=== PATIENT | male | born 1950 | race Two or more races ===

== ENCOUNTER 2018-02-18 12:48 | Inpatient (IN) | payer MEDICAID ==
--- NOTE | 2018-02-18 13:28 | ED Physician Chart ---
ED Chief Complaint/HPI - Patient Information Date Seen:: 02/18/18 Time Seen:: 13:10 Chief Complaint:: Seizures History of Present Illness:: onset x one day of multiple seizures; no report of trauma, LOC, H/As, neck pain , C/P, SOB, Abd. Pain, A/N/V/D/C, fever, chills, or urinary s/s Allergies:: Allergies Allergy/AdvReac Type Severity Reaction Status Date / Time No Known Allergies Allergy Verified 02/18/18 13:09 Historian:: Patient, EMS Review:: Nurse's Note Reviewed, Old Chart Reviewed, EMS run form Reviewed ED Review of Systems - Review of Systems General/Constitutional: No fever, No chills, No weight loss, No weakness, No diaphoresis, No edema, No loss of appetite Skin: No skin lesions, No rash, No bruising Head: No headache, No light-headedness Eyes: No loss of vision, No pain, No diplopia ENT: No earache, No nasal drainage, No sore throat, No tinnitus Neck: No neck pain, No swelling, No thyromegaly, No stiffness, No mass noted Cardio Vascular: No chest pain, No palpitations, No PND, No orthopnea, No edema Pulmonary: No SOB, No cough, No sputum, No wheezing GI: No nausea, No vomiting, No diarrhea, No pain, No melena, No hematochezia, No constipation, No hematemesis G/U: No dysuria, No frequency, No hematuria, No nacturia Musculoskeletal: No bone or joint pain, No back pain, No muscle pain Endocrine: No polyuria, No polydipsia Psychiatric: Prior psych history, No depression, No anxiety, No suicidal ideation, No homicidal ideation, Auditory hallucination, No visual hallucination Hematopoietic: No bruising, No lymphadenopathy Allergic/Immuno: No urticaria, No angioedema Neurological: No syncope, No focal symptoms, No weakness, No paresthesia, No headache, Seizure, No dizziness, Confusion, No vertigo ED Past Medical History - Past Medical History Obtainable: Yes Past Medical History: HTN, CAD, Dyslipidemia, PUD/GERD, Seizures, Dementia Family History: Diabetes Melitus, HTN Social History: Non Smoker, No Alcohol, No Drug Use, Single, Care Facility Surgical History: None Psychiatricy History: Schizophrenia, Bipolar Medication: Reviewed Family Medical History - Family Member Mother History Unknown: Yes ED Physical Exam - Physical Examination General/Constitutional: Awake, Well-developed, well-nourished, Alert, No distress, GCS 15, Non-toxic appearing, Ambulatory Head: Atraumatic Eyes: Lids, conjuctiva normal, PERRL, EOMI Skin: Nl inspection, No rash, No skin lesions, No ecchymosis, Well hydrated, No lymphadenopathy ENMT: External ears, nose nl, TM canals nl, Nasal exam nl, Lips, teeth, gums nl , Oropharynx nl, Tonsils nl Neck: Nontender, Full ROM w/o pain, No JVD, No nuchal rigidity, No bruit, No mass, No stridor Respiratory: Nl effort/Exclusion, Clear to Auscultation, No Wheeze/Rhonchi/Rales Cardio Vascular: RRR, No murmur, gallop, rubs, NL S1 S2, Carotid/Femoral/Distal pulses equal bilaterally GI: No tenderness/rebounding/guarding, No organomegaly, No hernia, Normal BS's, Nondistended, No mass/bruits, No McBurney tenderness, Rectum exam nl : No CVA tenderness Extremities: No tenderness or effusion, Full ROM, normal strength in all extremities, No edema, Normal digits & nails Neuro/Psych: DTR's symmetric, Normal sensory exam, Normal motor strength, Judgement/insight normal, Mood normal, Normal gait, No focal deficits Other Neuro/Psych comments:: Disoriented and Confused Misc: Normal back, No paraspinal tenderness ED Labs/Radiology/EKG Results - Lab Results Comments:: as above - Radiology Results Comments:: NAD - EKG Interpretations EKG Time:: 13:26 Rate & Rhythm: 111; ST Comments:: LVH; non-specific st-t changes ED Septic Shock - . Is Septic Shock (SBP<90, OR Lactate>4 mmol\L) present?: No ED Reassessment (Disposition) - Reassessment Reassessment Condition:: Improved - Diagnosis Diagnosis:: Seizures; Epilepsy; HTN; Dementia; CAD; Tachycardia; Cardiac Arrythmias - Aftercare/Follow up Instructions Aftercare/Follow-Up Instructions:: Counseled pt regarding lab results/diagnosis & need follow up, Counseled pt & family regarding lab results/diagnosis & need follow up - Patient Disposition Discharge/Transfer:: Acute Care w/in this hosp Accepting Physician:: Dr. Painter Time Called:: 1500 Time Responded:: 15:00 Admitted to:: Telemetry Spoke to:: Dr. Painter Admitting Medical Physician:: Dr. Painter Condition at Disposition:: Stable, Improved
[2018-02-18] MEDS ORDERED: Haloperidol Lactate 5 mg/mL 1mL Vial IM STA (13:39)
[2018-02-18] MEDS ORDERED: Haloperidol Lactate 5 mg/mL 1mL Vial ONE (14:03)
[2018-02-18 20:14] LABS: % BASOPHILS 0.1 % (0.0-2.0); % EOSINOPHILS 0.1 % (0.0-5.0); % LYMPHOCYTES 21.9 % (20.0-50.0); % MONOCYTES 8.9 % (2.0-10.0); HEMATOCRIT 42.8 % (41.0-60); HEMOGLOBIN 14.5 gm/dL (12-16); LYMPHOCYTE ABSOLUTE 2.2 Th/cmm (1.5-3.0); MEAN CELL VOLUME 90.2 fl (80-99); MEAN CORPUSCULAR HEMOGLOBIN 30.5 pg (27.0-31.0); MEAN CORPUSCULAR HGB CONC 33.8 pg (28.0-36.0); MEAN PLATELET VOLUME 7.3 fl; MONOCYTE ABSOLUTE 0.9 Th/cmm (0.3-1.0); PLATELET COUNT 251 Th/cmm (150-400); RED BLOOD COUNT 4.74 Mil/cmm (3.80-5.80); RED CELL DISTRIBUTION WIDTH 12.6 % (11.5-20.0); WHITE BLOOD COUNT 10.1 Th/cmm (4.8-10.8)
[2018-02-18 20:26] LABS: INR 1.02 (0.5-1.4)
[2018-02-18 20:33] LABS: PROTHROMBIN TIME (TEST) 10.6 SECONDS (9.5-11.5)
[2018-02-18 20:34] LABS: ALB/GLOB RATIO 1.2 (1.0-1.8); ALBUMIN 4.2 gm/dL (4.2-5.5); ALKALINE PHOSPHATASE 121 U/L (34-104); ANION GAP 11.5 (7.0-16.0); BILIRUBIN,TOTAL 0.5 mg/dL (0.3-1.0); BUN - UREA NITROGEN 11 mg/dL (7-25); CARBON DIOXIDE 25.2 mEq/L (21.0-31.0); CHLORIDE 103 mEq/L (98-107); CHOLESTEROL 150 mg/dL (<200); CREATININE - SERUM 0.6 mg/dL (0.7-1.3); CREATININE KINASE 433 U/L (30-223); GFR AFRICAN-AMERICAN > 60.0 ml/min (>90); GFR NON AFRICAN-AMERICAN > 60.0 ml/min; GLUCOSE 102 mg/dL (70-105); HDL -HIGH DENSITY LIPOPROTEIN 41 mg/dL (23-92); POTASSIUM SERUM 3.7 mEq/L (3.5-5.1); SGOT 30 U/L (13-39); SGPT/ALT 22 U/L (7-52); SODIUM SERUM 136 mEq/L (136-145); TOTAL PROTEIN,SERUM 7.8 gm/dL (6.0-8.3); TRIGLYCERIDES 58 mg/dL (<150)
[2018-02-18 22:27] VITALS: BP 119/70
[2018-02-19] MEDS ORDERED: Maalox 30 mL Cup PO PRN (01:39)
[2018-02-19] MEDS ORDERED: Magnesium Hydroxide (MOM) 30 mL UDC PO PRN (01:39)
[2018-02-19 07:02] LABS: % BASOPHILS 0.3 % (0.0-2.0); % EOSINOPHILS 0.8 % (0.0-5.0); % LYMPHOCYTES 24.9 % (20.0-50.0); % MONOCYTES 10.3 % (2.0-10.0); % NEUTROPHILS 63.7 % (40.0-80.0); EOSINOPHILE ABSOLUTE 0.1 Th/cmm (0.1-0.4); HEMATOCRIT 42.2 % (41.0-60); LYMPHOCYTE ABSOLUTE 2.3 Th/cmm (1.5-3.0); MEAN CELL VOLUME 89.7 fl (80-99); MEAN CORPUSCULAR HEMOGLOBIN 29.8 pg (27.0-31.0); MEAN CORPUSCULAR HGB CONC 33.3 pg (28.0-36.0); MEAN PLATELET VOLUME 7.1 fl; MONOCYTE ABSOLUTE 0.9 Th/cmm (0.3-1.0); NEUTROPHILE ABSOLUTE 5.9 Th/cmm (1.8-8.0); PLATELET COUNT 235 Th/cmm (150-400); RED CELL DISTRIBUTION WIDTH 12.7 % (11.5-20.0); WHITE BLOOD COUNT 9.2 Th/cmm (4.8-10.8)
[2018-02-19 07:15] LABS: ANION GAP 11.1 (7.0-16.0); BUN - UREA NITROGEN 13 mg/dL (7-25); CALCIUM SERUM 9.2 mg/dL (8.6-10.3); CARBON DIOXIDE 25.4 mEq/L (21.0-31.0); CHLORIDE 105 mEq/L (98-107); CREATININE - SERUM 0.7 mg/dL (0.7-1.3); GFR AFRICAN-AMERICAN > 60.0 ml/min (>90); GFR NON AFRICAN-AMERICAN > 60.0 ml/min; GLUCOSE 93 mg/dL (70-105); PHENYTOIN 5.7 ug/ml (10.0-20.0); POTASSIUM SERUM 3.5 mEq/L (3.5-5.1); SODIUM SERUM 138 mEq/L (136-145)
--- NOTE | 2018-02-19 07:37 | Diagnostic Imaging Report ---
Portable chest x-ray HISTORY: Pain Allowing for portable technique and a poor inspiration, the heart size is normal. No focal pulmonary processes. No hilar or mediastinal abnormalities. IMPRESSION: No acute abnormalities
--- NOTE | 2018-02-19 07:39 | Diagnostic Imaging Report ---
CT scan of the brain without intravenous contrast HISTORY: Seizures Total DLP equals 768 CTDI equals 38.9 Axial sections were obtained from the base of the skull to the vertex. Prior exams are not available for comparison. There are extensive surgical changes about the frontal, left parietal, bilateral orbital and maxillary regions. 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 Findings presumably related to surgical sequelae. There is enlargement of cerebral sulci and subarachnoid cisterns reflecting atrophy. No acute parenchymal abnormalities. No intracerebral hemorrhage. No other abnormal extra-axial masses. IMPRESSION: 1. Extensive surgical changes 2. 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 Findings presumably related to surgical sequelae. 3. Generalized cerebral atrophy 4. No acute intracerebral abnormalities
[2018-02-19] MEDS ORDERED: Non-Formulary Item 1 EA (Levetiracetam [Keppra] 750 MG) PO SCH (09:00)
[2018-02-19] MEDS: Multivitamin w/ Minerals Tab PO SCH (10:00)
[2018-02-19] MEDS: Dextromethorphan/Quinidine 20mg/10mg Cap PO SCH ×2 (10:00→20:15)
[2018-02-20] MEDS: Dextromethorphan/Quinidine 20mg/10mg Cap PO SCH ×2 (08:51→21:13)
[2018-02-20] MEDS: Multivitamin w/ Minerals Tab PO SCH (08:52)
--- NOTE | 2018-02-20 14:02 | Internal Medicine Prog Note ---
Internal Medicine Subjective - Subjective Service Date: 02/20/18 ([facility] [id number]) Internal Medicine Objective - Results Result Diagrams: 02/19/18 06:10 02/19/18 06:10 Recent Labs: Laboratory Last Values WBC 9.2 Th/cmm (4.8-10.8) 02/19/18 06:10 RBC 4.70 Mil/cmm (3.80-5.80) 02/19/18 06:10 Hgb 14.0 gm/dL (12-16) 02/19/18 06:10 Hct 42.2 % (41.0-60) 02/19/18 06:10 MCV 89.7 fl (80-99) 02/19/18 06:10 MCH 29.8 pg (27.0-31.0) 02/19/18 06:10 MCHC Differential 33.3 pg (28.0-36.0) 02/19/18 06:10 RDW 12.7 % (11.5-20.0) 02/19/18 06:10 Plt Count 235 Th/cmm (150-400) 02/19/18 06:10 MPV 7.1 fl 02/19/18 06:10 Neutrophils % 63.7 % (40.0-80.0) 02/19/18 06:10 Lymphocytes % 24.9 % (20.0-50.0) 02/19/18 06:10 Monocytes % 10.3 % (2.0-10.0) H 02/19/18 06:10 Eosinophils % 0.8 % (0.0-5.0) 02/19/18 06:10 Basophils % 0.3 % (0.0-2.0) 02/19/18 06:10 PT 10.6 SECONDS (9.5-11.5) 02/18/18 19:50 INR 1.02 (0.5-1.4) 02/18/18 19:50 Sodium 138 mEq/L (136-145) 02/19/18 06:10 Potassium 3.5 mEq/L (3.5-5.1) 02/19/18 06:10 Chloride 105 mEq/L (98-107) 02/19/18 06:10 Carbon Dioxide 25.4 mEq/L (21.0-31.0) 02/19/18 06:10 Anion Gap 11.1 (7.0-16.0) 02/19/18 06:10 BUN 13 mg/dL (7-25) 02/19/18 06:10 Creatinine 0.7 mg/dL (0.7-1.3) 02/19/18 06:10 Est GFR ( Amer) > 60.0 ml/min (>90) 02/19/18 06:10 Est GFR (Non-Af Amer) > 60.0 ml/min 02/19/18 06:10 BUN/Creatinine Ratio 18.6 02/19/18 06:10 Glucose 93 mg/dL (70-105) 02/19/18 06:10 Calcium 9.2 mg/dL (8.6-10.3) 02/19/18 06:10 Total Bilirubin 0.5 mg/dL (0.3-1.0) 02/18/18 19:50 AST 30 U/L (13-39) 02/18/18 19:50 ALT 22 U/L (7-52) 02/18/18 19:50 Alkaline Phosphatase 121 U/L (34-104) H 02/18/18 19:50 Creatine Kinase 433 U/L (30-223) H 02/18/18 19:50 CK-MB (CK-2) 5.2 ng/mL (0.6-6.3) 02/18/18 19:50 Troponin I 0.02 ng/mL (0.01-0.05) 02/18/18 19:50 B-Natriuretic Peptide 122.0 pg/mL (5.0-100.0) H 02/18/18 19:50 Total Protein 7.8 gm/dL (6.0-8.3) 02/18/18 19:50 Albumin 4.2 gm/dL (4.2-5.5) 02/18/18 19:50 Globulin 3.6 gm/dL 02/18/18 19:50 Albumin/Globulin Ratio 1.2 (1.0-1.8) 02/18/18 19:50 Triglycerides 58 mg/dL (<150) 02/18/18 19:50 Cholesterol 150 mg/dL (<200) 02/18/18 19:50 LDL Cholesterol Direct 110 mg/dL (75-193) 04/02/18 19:50 HDL Cholesterol 41 mg/dL (23-92) 02/18/18 19:50 TSH 1.17 uIU/ml (0.34-5.60) 02/19/18 06:10 Phenytoin 5.7 ug/ml (10.0-20.0) L 02/19/18 06:10 - Physical Exam Vitals and I&O: Vital Signs Temp 98.2 F 02/20/18 04:00 Pulse 82 02/20/18 04:00 Resp 17 02/20/18 12:00 BP 125/74 02/20/18 04:00 Pulse Ox 98 02/20/18 04:00 Intake & Output 02/19/18 02/20/18 02/20/18 18:59 06:59 18:59 Intake Total 500 Balance 500 Weight (lbs) 133 lb 139 lb 4.8 oz Intake: Oral 500 Other: # Voids 3 # Bowel Movements 1 Stool Characteristics Soft Weight Source Bedscale Bedscale Active Medications: Current Medications Al Hydrox/Mg Hydrox/Simethicone (Maalox) 30 ml PO Q4H PRN PRN Reason: GI DISTRESS Dextromethorphan/Quinidine (Nuedexta 20mg-10mg) 1 cap PO Q12HR BEBA Stop: 04/20/18 08:59 Last Admin: 02/20/18 08:51 Dose: 1 cap Docusate Sodium (Colace) 100 mg PO DAILY [facility]BA Stop: 04/20/18 08:59 Last Admin: 02/20/18 08:51 Dose: 100 mg Donepezil HCl (Aricept) 10 mg PO HS BEBA Stop: 04/20/18 20:59 Last Admin: 02/19/18 20:18 Dose: 10 mg Latanoprost (Xalatan 0.005% Ophth Soln) 1 drop EACH EYE HS BEBA Stop: 04/20/18 20:59 Last Admin: 02/19/18 20:19 Dose: 1 drop Levetiracetam (Keppra) 750 mg PO TID BEBA Stop: 04/19/18 22:44 Last Admin: 02/20/18 08:51 Dose: 750 mg Lorazepam (Ativan) 1 mg IVP Q4HR PRN; Protocol PRN Reason: Seizures Stop: 04/19/18 22:36 Magnesium Hydroxide (Milk Of Magnesia) 30 ml PO HS PRN PRN Reason: Constipation Stop: 04/20/18 01:38 Phenytoin (Dilantin) 300 mg PO TID [facility] Stop: 04/19/18 22:44 Last Admin: 02/20/18 08:51 Dose: 300 mg Sodium Chloride (Saline Flush) 10 ml IV QSHIFT [facility] Stop: 04/20/18 07:59 Last Admin: 02/20/18 08:52 Dose: 10 ml Tamsulosin HCl (Flomax) 0.4 mg PO HS [facility] Stop: 04/20/18 20:59 Last Admin: 02/19/18 20:18 Dose: 0.4 mg - Procedures Procedures: Procedures Procedure Code Date PARTIAL HIP REPLACEMENT 81.52 04/23/15 TREAT THIGH FRACTURE 19299 04/23/15
--- NOTE | 2018-02-20 17:03 | History & Physical ---
ADMIT DATE: 02/20/2018 CHIEF COMPLAINT: Seizures. HISTORY OF PRESENT ILLNESS: This is a 68-year-old male who is a alf resident who was brought here to [facility] due to 1-day history of multiple seizures. The patient is now admitted to the telemetry unit for further management. PAST MEDICAL HISTORY: Hypertension, CAD, dyslipidemia, PUD, GERD, seizures and dementia. FAMILY HISTORY: Noncontributory. SOCIAL HISTORY: The patient is a alf resident. SURGICAL HISTORY: Unknown. MEDICATIONS: Please see medication reconciliation. ALLERGIES: No drug allergies. REVIEW OF SYSTEMS: Unable to obtain, patient is confused. PHYSICAL EXAMINATION: GENERAL: The patient is well developed, well nourished, no acute distress. VITAL SIGNS: Temperature 99.2, heart rate 82, blood pressure 125/74, respirations 19 and O2 98%. HEENT: Head; normocephalic, atraumatic. NECK: Supple. No mass. LUNGS: Clear bilaterally. HEART: ____. ABDOMEN: Soft and nontender. LABORATORY DATA: WBC 9.2, H and H 14.0 and 42.2 and platelet of 235. Sodium 138, potassium 3.5, chloride 105, BUN 13 and creatinine 0.7. DIAGNOSTIC DATA: The patient had a chest x-ray done and the impression is no acute abnormalities. The patient also had a CT of the head done and the impression is extensive surgical changes. Findings consistent with severe encephalomalacia throughout the frontal region of the brain associated with what appears to be changes of ____. ASSESSMENT: Seizures, hypertension, coronary artery disease, dyslipidemia, gastroesophageal reflux disease and dementia. PLAN: The patient to be admitted to the telemetry unit, put patient on seizure precautions. Continue on anti-seizure medications. We will continue to monitor this patient. JOB# [id number]
[2018-02-21] MEDS: Dextromethorphan/Quinidine 20mg/10mg Cap PO SCH (09:26)
[2018-02-21] MEDS: Multivitamin w/ Minerals Tab PO SCH (09:26)
--- NOTE | 2018-02-21 14:29 | Internal Medicine Prog Note ---
Internal Medicine Subjective - Subjective Service Date: 02/21/18 Patient seen and examined:: with staff Patient is:: awake, verbal Per staff patient has:: tolerating meds Internal Medicine Objective - Results Result Diagrams: 02/19/18 06:10 02/19/18 06:10 Recent Labs: Laboratory Last Values WBC 9.2 Th/cmm (4.8-10.8) 02/19/18 06:10 RBC 4.70 Mil/cmm (3.80-5.80) 02/19/18 06:10 Hgb 14.0 gm/dL (12-16) 02/19/18 06:10 Hct 42.2 % (41.0-60) 02/19/18 06:10 MCV 89.7 fl (80-99) 02/19/18 06:10 MCH 29.8 pg (27.0-31.0) 02/19/18 06:10 MCHC Differential 33.3 pg (28.0-36.0) 02/19/18 06:10 RDW 12.7 % (11.5-20.0) 02/19/18 06:10 Plt Count 235 Th/cmm (150-400) 02/19/18 06:10 MPV 7.1 fl 02/19/18 06:10 Neutrophils % 63.7 % (40.0-80.0) 02/19/18 06:10 Lymphocytes % 24.9 % (20.0-50.0) 02/19/18 06:10 Monocytes % 10.3 % (2.0-10.0) H 02/19/18 06:10 Eosinophils % 0.8 % (0.0-5.0) 02/19/18 06:10 Basophils % 0.3 % (0.0-2.0) 02/19/18 06:10 PT 10.6 SECONDS (9.5-11.5) 02/18/18 19:50 INR 1.02 (0.5-1.4) 02/18/18 19:50 Sodium 138 mEq/L (136-145) 02/19/18 06:10 Potassium 3.5 mEq/L (3.5-5.1) 02/19/18 06:10 Chloride 105 mEq/L (98-107) 02/19/18 06:10 Carbon Dioxide 25.4 mEq/L (21.0-31.0) 02/19/18 06:10 Anion Gap 11.1 (7.0-16.0) 02/19/18 06:10 BUN 13 mg/dL (7-25) 02/19/18 06:10 Creatinine 0.7 mg/dL (0.7-1.3) 02/19/18 06:10 Est GFR ( Amer) > 60.0 ml/min (>90) 02/19/18 06:10 Est GFR (Non-Af Amer) > 60.0 ml/min 02/19/18 06:10 BUN/Creatinine Ratio 18.6 02/19/18 06:10 Glucose 93 mg/dL (70-105) 02/19/18 06:10 Calcium 9.2 mg/dL (8.6-10.3) 02/19/18 06:10 Total Bilirubin 0.5 mg/dL (0.3-1.0) 02/18/18 19:50 AST 30 U/L (13-39) 02/18/18 19:50 ALT 22 U/L (7-52) 02/18/18 19:50 Alkaline Phosphatase 121 U/L (34-104) H 02/18/18 19:50 Creatine Kinase 433 U/L (30-223) H 02/18/18 19:50 CK-MB (CK-2) 5.2 ng/mL (0.6-6.3) 02/18/18 19:50 Troponin I 0.02 ng/mL (0.01-0.05) 02/18/18 19:50 B-Natriuretic Peptide 122.0 pg/mL (5.0-100.0) H 02/18/18 19:50 Total Protein 7.8 gm/dL (6.0-8.3) 02/18/18 19:50 Albumin 4.2 gm/dL (4.2-5.5) 02/18/18 19:50 Globulin 3.6 gm/dL 02/18/18 19:50 Albumin/Globulin Ratio 1.2 (1.0-1.8) 02/18/18 19:50 Triglycerides 58 mg/dL (<150) 02/18/18 19:50 Cholesterol 150 mg/dL (<200) 02/18/18 19:50 LDL Cholesterol Direct 110 mg/dL (75-193) 02/18/18 19:50 HDL Cholesterol 41 mg/dL (23-92) 02/18/18 19:50 TSH 1.17 uIU/ml (0.34-5.60) 02/19/18 06:10 Phenytoin 5.7 ug/ml (10.0-20.0) L 02/19/18 06:10 - Physical Exam Vitals and I&O: Vital Signs Temp 96.8 F 02/21/18 11:50 Pulse 84 02/21/18 11:50 Resp 18 02/21/18 11:50 BP 120/68 02/21/18 11:50 Pulse Ox 97 02/21/18 11:50 Intake & Output 02/20/18 02/21/18 02/21/18 18:59 06:59 18:59 Intake Total 1040 Balance 1040 Weight (lbs) 139 lb 4.8 oz Intake: Oral 1040 Other: # Voids 2 # Bowel Movements 0 Weight Source Bedscale Active Medications: Current Medications Al Hydrox/Mg Hydrox/Simethicone (Maalox) 30 ml PO Q4H PRN PRN Reason: GI DISTRESS Dextromethorphan/Quinidine (Nuedexta 20mg-10mg) 1 cap PO Q12HR [facility]BA Stop: 04/20/18 08:59 Last Admin: 02/21/18 09:26 Dose: 1 cap Docusate Sodium (Colace) 100 mg PO DAILY [facility] Stop: 04/20/18 08:59 Last Admin: 02/21/18 09:26 Dose: 100 mg Donepezil HCl (Aricept) 10 mg PO HS BEBA Stop: 04/20/18 20:59 Last Admin: 02/20/18 21:13 Dose: 10 mg Latanoprost (Xalatan 0.005% Ophth Soln) 1 drop EACH EYE HS BEBA Stop: 04/20/18 20:59 Last Admin: 02/20/18 22:00 Dose: Not Given Levetiracetam (Keppra) 750 mg PO TID [facility] Stop: 04/19/18 22:44 Last Admin: 02/21/18 09:26 Dose: 750 mg Lorazepam (Ativan) 1 mg IVP Q4HR PRN; Protocol PRN Reason: Seizures Stop: 04/19/18 22:36 Magnesium Hydroxide (Milk Of Magnesia) 30 ml PO HS PRN PRN Reason: Constipation Stop: 04/20/18 01:38 Phenytoin (Dilantin) 300 mg PO TID [facility] Stop: 04/19/18 22:44 Last Admin: 02/21/18 09:27 Dose: 300 mg Sodium Chloride (Saline Flush) 10 ml IV QSHIFT [facility] Stop: 04/20/18 07:59 Last Admin: 02/21/18 09:38 Dose: 10 ml Tamsulosin HCl (Flomax) 0.4 mg PO HS [facility] Stop: 04/20/18 20:59 Last Admin: 02/20/18 21:13 Dose: 0.4 mg General: alert HEENT: NC/AT, PERRLA Neck: Supple Lungs: CTAB Cardiovascular: RRR Abdomen: soft, non-tender, non-distended, positive bowel sound Neurological: no change - Procedures Procedures: Procedures Procedure Code Date PARTIAL HIP REPLACEMENT 81.52 04/23/15 TREAT THIGH FRACTURE 51150 04/23/15 Internal Medicine Assmt/Plan - Assessment Assessment: SEIZURES HTN CAD DYSLIPIDEMIA GERD DEMENTIA - Plan Plan: SEIZURE PRECAUTIONS CPM
== END 2018-02-21 16:10 | DRG 53 ==
LOC: ER 12:48 → TELE 18:50
PROVIDERS: ADMIT Internal Medicine; ATTEND Internal Medicine
DX: G40.909 Epilepsy, unspecified, not intractable, without status epilepticus (principal); F03.90 Unspecified dementia, unspecified severity, without behavioral disturbance, psychotic disturbance, mood disturbance, and anxiety; E78.5 Hyperlipidemia, unspecified; I10 Essential (primary) hypertension; I25.10 Atherosclerotic heart disease of native coronary artery without angina pectoris; R00.0 Tachycardia, unspecified; I49.9 Cardiac arrhythmia, unspecified; K21.9 Gastro-esophageal reflux disease without esophagitis; Z82.49 Family history of ischemic heart disease and other diseases of the circulatory system; Z83.3 Family history of diabetes mellitus; Z87.11 Personal history of peptic ulcer disease
CPT/HCPCS: 36415-UA; 70450-TC; 71045-TC; 80048-TC; 80053-TC; 80061-TC; 80185-TC; 82550-TC; 82553; 83880-TC; 84443-TC; 84484-TC; 85025-TC; 85610-TC; 93005; 94760; J1200; J1630; J2060; Z7610